=== PATIENT | male | born 1985 | race Caucasian/White ===

== ENCOUNTER 2024-04-18 21:49 | Emergency (ER) | payer SELFPAY ==
[2024-04-18 22:27] VITALS: BP 144/83; PULSE 84; TEMP 36.7; O2SAT 95; BMI 33.5
--- NOTE | 2024-04-18 22:39 | ED_ITS ---
HPI HPI - General Adult General Chief complaint: Extremity Injury, Lower Stated complaint: LEG PAIN AND SWELLING Time Seen by Provider: 04/18/24 22:32 Source: patient Mode of arrival: walk-in Limitations: no limitations History of Present Illness HPI narrative: 38-year-old male presents for pain in his left calf. He has had it for a week and there was no injury. It seems to be behind the knee and go into the proximal calf area. Today he noticed that his ankle is swollen so he came in here tonight to have it evaluated. No symptoms in the right leg and no chest pain or shortness of breath. Related Data Home Medications ?Medication ?Instructions ?Recorded ?Confirmed No Known Home Medications 04/18/24 04/18/24 Allergies Allergy/AdvReac Type Severity Reaction Status Date / Time Penicillins Allergy Rash Verified 04/18/24 22:27 Opioid HPI Opioid Management Most Recent Opioid Data: No Data to Display Review of Systems ROS Narrative A ten point review of systems is negative except as noted above. PFSH PFSH Social History Little interest or pleasure in doing things: not at all Feeling down, depressed, or hopeless: not at all Exam Narrative Exam Narrative: Nurses note and vital signs reviewed and patient is not hypoxic. General: The patient appears well and in no apparent distress. Patient is resting comfortably on cart. Skin: Warm, dry, no pallor noted. There is no rash noted. Head: Normocephalic, atraumatic Eye: Normal conjunctiva, no drainage Ears, Nose, Mouth, and Throat: oral mucosa is moist. Nares patent. Cardiovascular: Regular Rate and Rhythm Respiratory: Patient is in no distress, no accessory muscle use GI: Soft and nontender Musculoskeletal: The left leg is examined. He has no mass or bruising or rash in the left knee or calf area. He seems to have some tenderness in the pop liteal fossa and proximal calf region. He has 1+ ankle edema, unilateral on the left. Neurological: Alert and oriented Psychiatric: Cooperative Constitutional Vital Signs, click to edit/add: Last Vital Signs Temp 98.0 F 04/18/24 22:27 Pulse 84 04/18/24 22:27 Resp 20 04/18/24 22:27 BP 144/83 H 04/18/24 22:27 Pulse Ox 95 04/18/24 22:27 O2 Del Method Room Air 04/18/24 22:27 Course Vital Signs Vital signs: Vital Signs Temperature 98.0 F 04/18/24 22:27 Pulse Rate 84 04/18/24 22:27 Respiratory Rate 20 04/18/24 22:27 Blood Pressure 144/83 H 04/18/24 22:27 Pulse Oximetry 95 04/18/24 22:27 Oxygen Delivery Method Room Air 04/18/24 22:27 Temperature 98.0 F 04/18/24 22:27 Pulse Rate 84 04/18/24 22:27 Respiratory Rate 20 04/18/24 22:27 Blood Pressure 144/83 H 04/18/24 22:27 Pulse Oximetry 95 04/18/24 22:27 Oxygen Delivery Method Room Air 04/18/24 22:27 Medical Decision Making MDM Narrative Medical decision making narrative: D-dimer is minimally elevated above the upper limit of normal and is 0.68 tonight. He was given subcu injection of Lovenox and will return at 8:00 in the morning for his venous Doppler. Findings are discussed thoroughly with the patient and his family. Differential Diagnosis Differential Diagnosis: Muscle strain, Loza's cyst, DVT Lab Data Lab results reviewed: Yes I reviewed the patient's lab results Labs: Lab Results 04/18/24 Range/Units 22:45 D-Dimer 0.68 H* (<=0.59) mg/L FEU Discharge Plan Discharge Chief Complaint: Extremity Injury, Lower Clinical Impression: Leg pain, left Patient Disposition: Home, Self-Care Time of Disposition Decision: 23:18 Condition: Good Mode of Transportation: Private Vehicle Prescriptions / Home Meds: No Action No Known Home Medications Print Language: Guyanese Instructions: Leg Pain (ED) Additional Instructions: Ultrasound at 8 AM on April 19 Referrals: MARIA T ENNIS [Primary Care Provider] - 1 week
--- NOTE | 2024-04-18 22:48 | PC.NURSE ---
Pain to left leg from behind knee down to foot. Denies injury. Skin pink and warm and pulses present. No redness noted. Slight swelling to left foot and ankle.
[2024-04-18 23:08] LABS: D Dimer 0.68 mg/L FEU (<=0.59)
[2024-04-18] MEDS: ENOXAPARIN SODIUM 120 MG/0.8 ML SYRINGE SUBQ (23:37)
== END 2024-04-18 23:42 | disposition home or self-care (01) ==
PROVIDERS: Emergency Provider Emergency Medicine; Family Provider Family Medicine; PCP Family Medicine
DX: M79.662 Pain in left lower leg (principal)
CPT/HCPCS: 36415; 85378; 96372; 99284; J1650

== ENCOUNTER 2024-04-19 10:42 | Outpatient (OUT) | payer SELFPAY ==
--- NOTE | 2024-04-19 10:49 | US_ITS ---
[facility] [id number] Patient Name: MELVIN CHE MRN: [id number] date: 1985 Sex: M Assigned Patient Location: ED.MAIN Current Patient Location: Accession/Order Number: [id number] Exam Date: 04/19/2024 10:50 Report Date: 04/19/2024 14:57 At the request of: SHIVA JUAN Procedure: US venous doppler LE LT CLINICAL DATA: Left popliteal fossa pain. PROCEDURE: Left lower extremity venous duplex ultrasound TECHNIQUE: Andersen-scale, color flow, and waveform spectral analysis was performed of the left lower extremity. FINDINGS: The left common femoral, profunda femoral, femoral, and popliteal veins were compressible. The saphenous vein was compressible. No venous thrombosis was seen. The veins fill with color Doppler. Augmentation was normal. Note is made of a popliteal fossa cyst measuring 5 x 2.6 x 1.2 cm. US/US venous doppler LE LT IMPRESSION: 1. No acute lower extremity deep venous thrombosis. 2. No superficial venous thrombosis. 3. Note is made of a popliteal fossa cyst. Electronically authenticated by: Bebe WARREN Date: 04/19/2024 14:57
== END 2024-04-19 10:43 | disposition home or self-care (01) ==
LOC: US 10:44
PROVIDERS: Family Provider Family Medicine; PCP Family Medicine; Visit Provider Emergency Medicine
DX: M79.89 Other specified soft tissue disorders (principal); M79.605 Pain in left leg; M71.22 Synovial cyst of popliteal space [Baker], left knee
CPT/HCPCS: 93971